=== PATIENT | female | born 1980 | race Hispanic/Latino ===

== ENCOUNTER 2017-09-26 08:40 | Day surgery (SDC) | payer OTHER ==
[2017-09-23 13:42] VITALS: BMI 20.1
[2017-09-26 09:34] VITALS: RESP 18
[2017-09-26 09:54] LABS: HEMOGLOBIN 14.6 g/dL (12.0-16.0); MEAN CELL VOLUME 90.8 fl (81.0-99.0); MEAN CORPUSCULAR HEMOGLOBIN 31.7 pg (27.0-31.0); MEAN CORPUSCULAR HGB CONC 34.9 g/dL (33.0-37.0); RBC 4.61 Mil/uL (3.80-5.20); WHITE BLOOD COUNT 5.2 K/uL (4.8-10.8)
[2017-09-26] MEDS ORDERED: Lactated Ringer's 1,000 ML IV ONE ×3 (11:35→13:00)
[2017-09-26] MEDS ORDERED: Bupivacaine 0.5% 50 ML IJ ONE (13:05)
[2017-09-26] MEDS ORDERED: DiphenhydrAMINE 50 mg/ml Inj IVP PRN (13:18)
[2017-09-26] MEDS ORDERED: Lactated Ringer's 1,000 ML IV SCH (13:30)
[2017-09-26] MEDS: HYDROmorphone 0.5 mg/0.5 ml ISec IVP PRN ×2 (13:38→13:55)
[2017-09-26] MEDS ORDERED: Oxycodone/Acetaminophen 5/325 mg Tab PO PRN (13:39)
[2017-09-26] MEDS ORDERED: Trimethobenzamide 200 mg/2 mL Inj IM ONE (13:47)
[2017-09-26 17:45] VITALS: O2SAT 98
[2017-09-26 19:01] VITALS: BP 110/65; PULSE 74; TEMP 97.9
--- NOTE | 2017-10-01 19:45 | OP ---
PROCEDURE DATE: PREOPERATIVE DIAGNOSES: pelvic pain and recurrent endometriosis. PROCEDURE PERFORMED: 1. Cystoscopy with bilateral ureteral catheterization. 2. Diagnostic hysteroscopy. 3. Robotic da Dori laparoscopy. 4. Excision of endometriosis, bilateral ureterolysis, ovariolysis, and appendectomy to be dictated separately by Dr. Zamudio from General Surgery. 5. Excision of bladder mass. SURGEON: Lux Robles MD ADVANCED REGISTERED NURSE: Norm Zamudio MD from General Surgery. SPECIMENS: Multiple samples were sent to pathology. INDICATION FOR PROCEDURE: This patient is a 36-year-old with a history of persistent pain and a known history of endometriosis. She was evaluated multiple times in the office and she had clear signs of peritoneal evidence of endometriosis. She was counseled with regards to risks and benefits of the procedure and she signed the consent and was taken to the OR. DESCRIPTION OF PROCEDURE: After adequate anesthesia was obtained, the patient was placed in a dorsal lithotomy position. She was prepped and draped, the surgeon was gowned and gloved. At this point, attention was on the vaginal area where a cystoscopy was performed by inserting a cystoscope into the bladder. Under direct visualization, the bladder appeared to be in good condition. Both ureter were in a normal anatomical position, the left ureter was canalized all the way to the distal ureter utilizing an open-ended stent, and 5 mL of IC-Green was then injected. The stent was withdrawn and again the same catheter was inserted into the right ureter all the way to the distal ureter and 5 mL of IC-Green was then injected. At this point, a Barton was placed in the bladder and attention was in the vaginal area where a speculum was placed in the vagina. The anterior lip of the cervix was grasped, the cervix was gently dilated and the hysteroscope was inserted into the uterus and the uterine cavity appeared to be in normal condition with no evidence of endometritis or polyps. At this point, attention was on the abdomen where after re-gowned and re-gloving, an open laparoscopy was performed with a standard open laparoscopy technique by making skin incision entering the end of fascia and then in the blunt fashion entering the peritoneum in placing a cannula. After insufflating the abdomen, the pelvis was visualized with a following finding. There was evidence of endometriosis on the bladder serosa. There were also areas of endometriosis in the left pelvic sidewall, right pelvic sidewall, posterior cervix, and right cul-de-sac. Under direct visualization, the addition 3 trocars were placed, left upper quadrant, left mid quadrant, and right upper quadrant. The da Dori Xi robot was then docked and the procedure was started. The first part of the procedure involved excising the lesion from the bladder area where the serosa of the bladder was elevated and a full dissection was performed excising a large area of peritoneum containing endometriosis. The muscularis of the bladder was not entered and there was no damage to the bladder. A second area on the bladder again was also excised and also sent to pathology. At this point, attention was on the posterior aspect of the uterus where an area of endometriosis on the left pelvic sidewall was identified, firstly the ureter was identified utilizing fluorescent technology and the peritoneum was entered and after lateralizing the ureter, an area of peritoneum was excised obtaining a large _ amount of tissue was sent to pathology. The posterior area of the cervix was also identified and that was also excised with great care to avoid the bowel. An area on the posterior cul-de-sac on the right-hand side was also identified to be suspicion, it was elevated and excised. At this point, attention was on the right pelvic sidewall where after identified the ureter, an additional area of endometriosis was performed after performing an ovariolysis. There was a small area of endometriosis on the left ovary, which was also ablated. At this point, there were areas of inflammatory tissue on the posterior aspect of the uterus and a cul-de-sac, which were identified. These were ablated utilizing plasma energy technology. At this point, an appendectomy was performed by Dr. Norm Zamudio from General Surgery, he will dictate it separately. At this point, it was checked for hemostasis and appeared to be excellent. The da Dori robot was removed and the abdomen was desufflated. The instruments were removed and the incisions were closed in layers with 0 PDS for the fascia and 4-0 Monocryl for the skin. At the end of the procedure, all tapes and instruments counts are correct. The patient tolerated the procedure well and was taken to recovery room in excellent condition. Lux Robles MD [facility] # [id number] MTDArvin
--- NOTE | 2017-10-23 16:35 | PCM.OP ---
Operative Report - Operative Report Date of Surgery/Procedure: 09/26/17 Time of Surgery/Procedure: 10:00 Surgeon: Dr. Norm Zamudio Lead Teacher: Dr. Lux Robles Anesthesia/Sedation: general/Dr. Dinero Pre-Operative Diagnosis: abdominal pain and endometriosis Post-Operative Diagnosis: endometriosis of the rectum (times two) and apendix Indication for Surgery: as above Operative Findings: as above Procedure/Operation Description: 1-Excision perirectal endometriosis (times two) . Breif History: This 36 year old woman was already brought to the operating room by Dr. Bone when he requested an intraoperative gmneral surgery consultation. Description of the Procedure: The patient had already had initated the robotic proecdure by Dr. Robles (separate dictatin Dr. Robles). After taking control of the robotic console the first of two rectl lesion was identified and with blunt and sharp dissction with the aid of electrocautery the lesion was circumscribed circumferentially and excised en-bloc. Once removed it was appropriately marked and sent to pathology separately. The second lesion was excised in a similar fashion and sent to pathology separately. Our attention then turned to the veriform appendix and with anterior retraction the mesentery was dessicated to the base. The appednix was ligated with three 3-0 PDS endoloops and transected. This was sent to pathology separately. Hemostasis was demed adequate and the operation was then turned over to Dr. Robles (separate dictation Dr. Robles). Estimated Blood Loss: 10 cc Complications: none Specimen: 1-perirectal endometriosis (times two). 2-appendix Discharge & Condition: stable
== END 2017-09-26 19:08 | disposition home or self-care (01) ==
LOC: H.OPSURG 08:40
PROVIDERS: ATTEND Obstetrics & Gynecology Reproductive Endocrinology
DX: R10.2 Pelvic and perineal pain (principal); N80.0 Endometriosis of uterus; K37 Unspecified appendicitis
CPT/HCPCS: 36415; 44970; 58662; 85027; 86850; 86900; 88305; C1729; J0330; J0690; J1100; J1170; J2001; J2250; J2405; J2704; J2710; J2765; J3010; J7030; J7040; J7120